=== PATIENT | female | born 2000 | race Caucasian/White ===

== ENCOUNTER 2022-01-28 12:50 | Emergency (ER) | payer OTHER ==
[~2022-01-28 12:50] MED LIST: Iopamidol 370 76% 100 ML VIAL ONE
[2022-01-28] MEDS ORDERED: Dexamethasone 10 MG/ML VIAL ONE (14:36)
[2022-01-28] MEDS ORDERED: Ketorolac Tromethamine 30 MG/ML VIAL ONE (14:37)
[2022-01-28] MEDS ORDERED: Oxymetazoline HCl 0.05% ( 15 ML ) ONE (14:43)
== END 2022-01-28 16:56 | disposition home or self-care (01) ==
LOC: CSHERS 12:50
DX: J40 Bronchitis, not specified as acute or chronic (principal); B37.9 Candidiasis, unspecified
CPT/HCPCS: 71046; 87804; 93005; 94640; 96372; 99406; J1100; J1885; J7620; Q9967